=== PATIENT | male | born 1965 | race Native Hawaiian/Other Pacific Islander ===

== ENCOUNTER 2017-07-26 09:49 | Inpatient (IN) | payer SELFPAY ==
[2017-07-26] MEDS ORDERED: BABY ASPIRIN PO ONE (10:02)
[2017-07-26] MEDS ORDERED: NACL 0.9% 1000 ML 1,000 ML ONE ×2 (10:09→13:08)
[2017-07-26] MEDS ORDERED: PLAVIX ONE (10:11)
--- NOTE | 2017-07-26 10:11 | Emergency Department Report ---
HPI - General Time Seen by Provider: 07/26/17 10:02 - HPI HPI: 51-year-old male presents to the emergency department, through triage, with midsternal to left-sided chest pain that has been going on since last night. He has a history of tobacco abuse and hypertension. No previous history of coronary artery disease, OH or any coronary stents. He took some Aleve for his pain without any relief. He does not have a primary care physician or valve pipe irrigator. ED Review of Systems ROS: Stated complaint: HEAD AND CHEST PAIN Other details as noted in HPI Comment: All other systems reviewed and negative Constitutional: denies: chills, fever Eyes: denies: eye pain, eye discharge, vision change ENT: denies: ear pain, throat pain Respiratory: denies: cough, shortness of breath, wheezing Cardiovascular: chest pain. denies: palpitations Gastrointestinal: denies: abdominal pain, nausea, diarrhea Genitourinary: denies: urgency, dysuria Musculoskeletal: denies: back pain, joint swelling, arthralgia Skin: denies: rash, lesions Neurological: denies: headache, weakness, paresthesias Physical Exam - Physical Exam Physical Exam: GENERAL: The patient is well-developed well-nourished. Patient appears very uncomfortable. Holding chest. HENT: Normocephalic. Atraumatic. Patient has moist mucous membranes. EYES: Extraocular motions are intact. Pupils equal reactive to light bilaterally. NECK: Supple. Trachea is midline. CHEST/LUNGS: Clear to auscultation. There is no respiratory distress noted. HEART/CARDIOVASCULAR: Regular. There is no tachycardia. There is no gallop rub or murmur. ABDOMEN: Abdomen is soft, nontender. Patient has normal bowel sounds. There is no abdominal distention. SKIN: There is some mild diaphoresis. Skin is warm. NEURO: The patient is awake, alert, and oriented. The patient is cooperative. The patient has no focal neurologic deficits. The patient has normal speech. MUSCULOSKELETAL: There is no tenderness or deformity. There is no limitation range of motion. There is no evidence of acute injury. ED Course - Consultations Consultation #1: I spoke to the venue attendant, Dr. Diaz, who will take the patient to the specialist employee labor relations. 07/26/17 10:10 ED Medical Decision Making - Lab Data Result diagrams: 07/26/17 09:49 07/26/17 09:49 - EKG Data -: EKG Interpreted by Me EKG shows normal: sinus rhythm, axis, intervals, QRS complexes, ST-T waves (ST elevations to the anterior and less extensively to the lateral leads) Rate: normal - EKG Data Interpretation: acute OH - Radiology Data Radiology results: image reviewed interpreted by me: Chest x-ray does not show any acute process. There are no pleural effusions, obvious pneumonia and there is no pneumothorax. - Medical Decision Making 51-year-old male presents to triage with chest pain since the previous night. EKG shows diffuse anterior and some lateral ST elevations concerning for ST elevation OH. Code STEMI call. The venue attendant was notified and agreed to take him to the specialist employee labor relations. He was given Plavix and heparin bolus. Patient was taken to the [facility] and admitted from there. Found to have LAD occlusion, received balloon and stent. - Differential Diagnosis STEMI, NSTEMI, Pneumonia, Dissection Critical Care Time: Yes Critical care time in (mins) excluding proc time.: 15 Critical care attestation.: If time is entered above; I have spent that time in minutes in the direct care of this critically ill patient, excluding procedure time. Critical care time was spent on this patient and during his initial valuation, multiple re- evaluations, discussion with the venue attendant, ordering interpretation of labs, evaluation of EKG. ED Disposition Clinical Impression: STEMI (ST elevation myocardial infarction) Qualifiers: Involved coronary artery: LAD coronary artery Qualified Code(s): I21.02 - ST elevation (STEMI) myocardial infarction involving left anterior descending coronary artery HLD (hyperlipidemia) Qualifiers: Hyperlipidemia type: unspecified Qualified Code(s): E78.5 - Hyperlipidemia, unspecified CAD (coronary artery disease) Qualifiers: Coronary Disease-Associated Artery/Lesion type: unspecified vessel or lesion type [place] vs. transplanted heart: [place] heart Associated angina: angina presence unspecified Qualified Code(s): I25.10 - Atherosclerotic heart disease of [place] coronary artery without angina pectoris Disposition: OP ADMIT IP TO THIS HOSP Is pt being admited?: Yes Condition: Serious Time of Disposition: 15:35
[2017-07-26] MEDS ORDERED: HEPARIN 10,000 UNITS/10 ML ONE ×3 (10:12→10:38)
[2017-07-26] MEDS ORDERED: HEPARIN IV ONE (10:12)
[2017-07-26] MEDS ORDERED: PLAVIX PO ONE (10:12)
[2017-07-26] MEDS ORDERED: ZOFRAN ONE (10:15)
[2017-07-26] MEDS ORDERED: MORPHINE ONE ×2 (10:15→12:39)
[2017-07-26] MEDS ORDERED: ZOFRAN IV ONE (10:15)
[2017-07-26] MEDS ORDERED: MORPHINE IV ONE ×2 (10:15→12:39)
[2017-07-26 10:17] LABS: Basophils % (Auto) 0.6 % (0.0-1.8); Hematocrit 49.6 % (35.5-45.6); Hemoglobin 17.3 gm/dl (11.8-15.2); Mean Corpuscular HGB Conc 35 % (32-34); Mean Corpuscular Hemoglobin 35 pg (28-32); Mean Corpuscular Volume 101 fl (84-94); Platelet Count 401 K/mm3 (140-440); Red Blood Count 4.92 M/mm3 (3.65-5.03); Red Cell Distribution Width 13.2 % (13.2-15.2)
[2017-07-26] MEDS ORDERED: HEPARIN/NS 5000 UNIT/500ML(CATH LAB) 1,500 ML IR ONE (10:20)
[2017-07-26] MEDS ORDERED: XYLOCAINE 2% INFILTRATI ONE (10:20)
[2017-07-26] MEDS ORDERED: NITROGLYCERIN ONE (10:20)
[2017-07-26] MEDS ORDERED: SUBLIMAZE ONE (10:27)
[2017-07-26 10:31] LABS: Partial Thromboplastin Time 28.3 Sec. (24.2-36.6)
[2017-07-26 10:35] LABS: Albumin 4.5 g/dL (3.9-5); Alkaline Phosphatase 80 units/L (35-129); Blood Urea Nitrogen 18 mg/dL (9-20); Carbon Dioxide 31 mmol/L (22-30); Chloride 92.1 mmol/L (98-107); Glucose 156 mg/dL (75-100); Sodium 139 mmol/L (137-145); Total Protein 8.8 g/dL (6.3-8.2)
[2017-07-26 10:39] LABS: Alanine Aminotransferase 84 units/L (7-56); Anion Gap 20 mmol/L
[2017-07-26 10:40] LABS: Potassium 4.4 mmol/L (3.6-5.0)
[2017-07-26 10:53] LABS: Cholesterol 262 mg/dL (50-199); HDL Cholesterol 90 mg/dL (40-59); LDL Cholesterol,Direct 148 mg/dL (50-130); Triglycerides 123 mg/dL (2-149)
[2017-07-26] MEDS ORDERED: NACL 0.9% 1000 ML 1,000 ML IV ONE (11:00)
[2017-07-26] MEDS ORDERED: HEPARIN 10,000 UNITS/10 ML IV ONE (11:00)
[2017-07-26] MEDS ORDERED: CALAN ONE (11:05)
[2017-07-26] MEDS ORDERED: AGGRASTAT DRIP (12.5 MG/250 ML) 12,500 MCG/250 ML BAG IV ONE (11:11)
[2017-07-26] MEDS ORDERED: TRIDIL DRIP 50MG/250ML 50 MG/250 ML BOTTLE IV ONE (11:15)
--- NOTE | 2017-07-26 11:24 | Consultation ---
History of Present Illness Consult date: 07/26/17 Consult reason: chest pain History of present illness: 51y M history of tobacco abuse, presents with chest pain and ECG consistent with acute anterior STEMI. Emergency cardiac cath with successful primary PCI of occluded mid LAD. A 2.75mm BM stent deployed, and CHRISTIAN 3 flow restored. A secondary 60% stenosis of the proximal circumflex will be treated medically. Transfer to CCU on meds. Past History Past Medical History: hypertension Medications and Allergies Allergies Allergy/AdvReac Type Severity Reaction Status Date / Time No Known Allergies Allergy Unverified 07/26/17 10:11 Active Meds: Active Medications Sodium Chloride (Nacl 0.9% 1000 Ml) 1,000 mls @ 999 mls/hr IV BOLUS ONE Stop: 07/26/17 12:00 Last Admin: 07/26/17 10:16 Dose: 999 mls/hr Review of Systems Cardiovascular: chest pain, shortness of breath, no orthopnea, no palpitations, no rapid/irregular heart beat, no edema, no syncope, no lightheadedness Physical Examination Vital Signs Resp Pulse Ox 16 100 07/26/17 10:00 07/26/17 10:00 General appearance: no acute distress HEENT: Positive: PERRL Neck: Positive: neck supple Cardiac: Positive: Reg Rate and Rhythm Lungs: Positive: Decreased Breath Sounds Neuro: Positive: Grossly Intact Abdomen: Positive: Soft Male genitourinary: Positive: deferred Skin: Positive: Clear Extremities: Absent: edema Results 07/26/17 09:49 07/26/17 09:49 Cardiac Enzymes 07/26/17 Range/Units 09:49 AST 438 H (5-40) units/L Coagulation 07/26/17 Range/Units 09:49 PT 13.1 (12.2-14.9) Sec. INR 1.00 (0.87-1.13) APTT 28.3 (24.2-36.6) Sec. Lipids 07/26/17 Range/Units 09:49 Triglycerides 123 (2-149) mg/dL Cholesterol 262 H (50-199) mg/dL HDL Cholesterol 90 H (40-59) mg/dL Cholesterol/HDL Ratio 2.91 % CBC 07/26/17 Range/Units 09:49 WBC 12.0 H (4.5-11.0) K/mm3 RBC 4.92 (3.65-5.03) M/mm3 Hgb 17.3 H (11.8-15.2) gm/dl Hct 49.6 H (35.5-45.6) % Plt Count 401 (140-440) K/mm3 Lymph # 1.0 L (1.2-5.4) K/mm3 [place] # 0.9 H (0.0-0.8) K/mm3 Eos # 0.0 (0.0-0.4) K/mm3 Baso # 0.1 (0.0-0.1) K/mm3 Comprehensive Metabolic Panel 07/26/17 Range/Units 09:49 Sodium 139 (137-145) mmol/L Potassium 4.4 (3.6-5.0) mmol/L Chloride 92.1 L (98-107) mmol/L Carbon Dioxide 31 H (22-30) mmol/L BUN 18 (9-20) mg/dL Creatinine 1.0 (0.8-1.5) mg/dL Glucose 156 H (75-100) mg/dL Calcium 10.0 (8.4-10.2) mg/dL AST 438 H (5-40) units/L ALT 84 H (7-56) units/L Alkaline Phosphatase 80 (35-129) units/L Total Protein 8.8 H (6.3-8.2) g/dL Albumin 4.5 (3.9-5) g/dL EKG interpretations - Telemetry EKG Rhythm: Sinus Rhythm (with anterior STEMI) Assessment and Plan - Patient Problems (1) STEMI (ST elevation myocardial infarction) Current Visit: Yes Status: Acute Qualifiers: Involved coronary artery: I Plan to address problem: Emergency cardiac cath with successful primary PCI of occluded mid LAD. A 2.75mm BM stent deployed, and CHRISTIAN 3 flow restored. A secondary 60% stenosis of the proximal circumflex will be treated medically. Transfer to CCU on meds.
[2017-07-26] MEDS ORDERED: AGGRASTAT DRIP (12.5 MG/250 ML) 12,500 MCG/250 ML BAG IV SCH ×2 (12:00→15:00)
[2017-07-26] MEDS ORDERED: ZESTRIL PO SCH ×2 (12:00)
[2017-07-26] MEDS ORDERED: NACL 0.9% 1000 ML 1,000 ML IV SCH (12:00)
[2017-07-26] MEDS ORDERED: TRIDIL DRIP 50MG/250ML 50 MG/250 ML BOTTLE ONE (12:08)
--- NOTE | 2017-07-26 12:21 | History and Physical Report ---
History of Present Illness Chief complaint: My chest is hurting History of present illness: 51 YO Male with HTN, Nicotine Dependence presents to ED for evaluation. Pt states that he has experienced pain in his chest for the past 12 hours, with worsening symptoms over the past 4 hours. Pt states that pain is 6/10, substernal, nonradiating, nor worsened with exertion or relieved with rest. PT took NSAID's for pain without relief. Pt seen and evaluated in ED and found to have STEMI. Cardiology team consulted, and patient taken urgently to pathology laboratory aides teacher for intervention and subsequently admitted to ICU. No reports of fever, chills, NVD, prolonged travel/immobility, individual/family history of DVT/PE, productive cough, or recent ill contacts. Past History Past Medical History: hypertension Past Surgical History: No surgical history, Other (reviewed) Social history: single. denies: smoking, alcohol abuse, prescription drug abuse Family history: hypertension Medications and Allergies Allergies Allergy/AdvReac Type Severity Reaction Status Date / Time No Known Allergies Allergy Unverified 07/26/17 10:11 Active Meds: Active Medications Aspirin (Ecotrin) 325 mg PO QDAY CASEY Clopidogrel Bisulfate (Plavix) 75 mg PO QDAY CASEY Tirofiban/Sodium Chloride (Aggrastat Drip (12.5 Mg/250 Ml)) 12,500 mcg in 250 mls @ 12.6 mls/hr IV DIRECT CASEY; Per Protocol PRN Reason: Protocol Stop: 07/27/17 05:59 Nitroglycerin/Dextrose (Tridil Drip 50mg/250ml) 50 mg in 250 mls @ 3 mls/hr IV TITR ONE; 10 MCG/MIN PRN Reason: Protocol Stop: 07/29/17 22:34 Sodium Chloride (Nacl 0.9% 1000 Ml) 1,000 mls @ 100 mls/hr IV DIRECT CASEY Stop: 07/26/17 23:59 Lisinopril (Zestril) 10 mg PO QDAY CASEY Last Admin: 07/26/17 12:01 Dose: 10 mg Metoprolol Tartrate (Lopressor) 50 mg PO BID CASEY Simvastatin (Zocor) 40 mg PO QHS CASEY Review of Systems Constitutional: no weight loss, no weight gain, no fever, no chills, no sweats Ears, nose, mouth and throat: no ear pain, no ear discharge, no tinnitis, no decreased hearing, no nose pain, no nasal congestion Cardiovascular: chest pain, no rapid/irregular heart beat, no edema, no syncope , no lightheadedness, no shortness of breath, no dyspnea on exertion, no paroxysmal nocturnal dyspnea Respiratory: no cough, no cough with sputum, no excessive sputum, no hemoptysis Gastrointestinal: no nausea, no vomiting, no diarrhea, no constipation Genitourinary Male: no dysuria, no hematuria, no flank pain, no discharge Rectal: no pain, no incontinence, no bleeding Musculoskeletal: no neck stiffness, no neck pain, no shooting arm pain, no arm numbness/tingling, no low back pain Integumentary: no rash, no pruritis, no redness, no sores Neurological: no transient paralysis, no paralysis, no weakness, no parathesias , no numbness, no tingling, no seizures Psychiatric: no memory loss, no change in sleep habits, no sleep disturbances, no insomnia, no hypersomnia, no change in appetite Endocrine: no heat intolerance, no polyphagia, no excessive thirst, no polydipsia, no polyuria, no nocturia Hematologic/Lymphatic: no easy bruising, no easy bleeding Allergic/Immunologic: no urticaria, no allergic rhinitis, no wheezing Exam - Constitutional Vitals: Temp Pulse Resp BP Pulse Ox 98.3 F 70 18 121/84 96 07/26/17 11:30 07/26/17 12:01 07/26/17 11:30 07/26/17 12:01 07/26/17 11:30 General appearance: Present: mild distress - EENT Eyes: Present: PERRL ENT: hearing intact, clear oral mucosa - Neck Neck: Present: supple, normal ROM - Respiratory Respiratory effort: normal Respiratory: bilateral: CTA - Cardiovascular Heart Sounds: Present: S1 & S2. Absent: rub, click - Extremities Extremities: pulses symmetrical, No edema Peripheral Pulses: within normal limits - Abdominal General gastrointestinal: Present: soft, non-tender, non-distended, normal bowel sounds Male genitourinary: Present: normal - Integumentary Integumentary: Present: clear, dry, clammy, decreased turgor - Musculoskeletal Musculoskeletal: generalized weakness - Psychiatric Psychiatric: appropriate mood/affect, intact judgment & insight, agitated - Neurologic Neurologic: CNII-XII intact, moves all extremities Results - Labs CBC & Chem 7: 07/26/17 09:49 07/26/17 09:49 Labs: Abnormal lab results 07/26/17 07/26/17 Range/Units 09:49 09:49 WBC 12.0 H (4.5-11.0) K/mm3 Hgb 17.3 H (11.8-15.2) gm/dl Hct 49.6 H (35.5-45.6) % MCV 101 H (84-94) fl MCH 35 H (28-32) pg MCHC 35 H (32-34) % Lymph % (Auto) 8.0 L (13.4-35.0) % Lymph # 1.0 L (1.2-5.4) K/mm3 [place] # 0.9 H (0.0-0.8) K/mm3 Seg Neutrophils % 84.2 H (40.0-70.0) % Seg Neutrophils # 10.1 H (1.8-7.7) K/mm3 Chloride 92.1 L (98-107) mmol/L Carbon Dioxide 31 H (22-30) mmol/L Glucose 156 H (75-100) mg/dL AST 438 H (5-40) units/L ALT 84 H (7-56) units/L Troponin T 5.080 H* (0.00-0.029) ng/mL Total Protein 8.8 H (6.3-8.2) g/dL Cholesterol 262 H (50-199) mg/dL LDL Cholesterol Direct 148 H (50-130) mg/dL HDL Cholesterol 90 H (40-59) mg/dL Assessment and Plan - Patient Problems (1) STEMI (ST elevation myocardial infarction) Current Visit: Yes Status: Acute Qualifiers: Involved coronary artery: I Plan to address problem: Cardiology consulted, Pt taken to pathology laboratory aides teacher, supportive care, antiplatelet therapy, risk factor reduction The high probability of a clinically significant, sudden or life threatening deterioration of the [cardiac, pulmonary, renal] system(s) required my full and direct attention, intervention and personal management. The aggregate critical care time was [65] minutes. This time is in addition to time spent performing reported procedures but includes the following: [x] Data Review and interpretation [x] Patient assessment and monitoring of vital signs [x] Documentation [x] Medication orders and management (2) HLD (hyperlipidemia) Current Visit: Yes Status: Acute Qualifiers: Hyperlipidemia type: H Plan to address problem: statin theapy, risk factor reduction (3) Nicotine dependence Current Visit: Yes Status: Acute Qualifiers: Nicotine product type: N Substance use status: S Plan to address problem: supportive care, pt refused to pick quit date (4) CAD (coronary artery disease) Current Visit: Yes Status: Acute Qualifiers: Coronary Disease-Associated Artery/Lesion type: C [place] vs. transplanted heart: N Associated angina: A Plan to address problem: continue medical management, supportive care, (5) DVT prophylaxis Current Visit: Yes Status: Acute
[2017-07-26] MEDS ORDERED: PROVENTIL IH PRN (12:22)
[2017-07-26] MEDS ORDERED: DULCOLAX PR PRN (12:22)
[2017-07-26] MEDS ORDERED: MILK OF MAGNESIA PO PRN (12:22)
[2017-07-26] MEDS ORDERED: ALUM-MAG HYDROX-SIMETH 200-200-20MG/5ML PO PRN (12:22)
--- NOTE | 2017-07-26 13:59 | XRay Report ---
AP CHEST: HISTORY: chest pain AP view of the chest demonstrates a normal mediastinal and cardiac contour with clear lungs and normal bony and soft tissue structures. IMPRESSION: Unremarkable AP chest.
[2017-07-26 20:16] LABS: Hematocrit 43.6 % (35.5-45.6); Hemoglobin 14.9 gm/dl (11.8-15.2)
[2017-07-26] MEDS ORDERED: ZOCOR PO SCH (22:00)
[2017-07-26] MEDS ORDERED: LOPRESSOR PO SCH (22:00)
--- NOTE | 2017-07-27 01:42 | Cardiac Catherization Report ---
REASON FOR PROCEDURE: The patient is a 51-year-old man with chronic tobacco abuse, presents to the Emergency Room with chest pain. ECG demonstrated an acute anterior wall ST elevation myocardial infarction. Emergency cardiac catheterization protocol was activated. PROCEDURE: The patient was prepped and draped in a sterile fashion under emergency protocol. The right femoral artery was entered using the Seldinger technique followed by placement of a 6-[place]ugu sheath. A #4 right Pamela catheter was used for right coronary angiography. Following that, we exchanged for a #3.5 XB guiding catheter for left coronary angiography. CORONARY ANGIOGRAPHY: The left main coronary artery was free of significant disease. The left anterior descending artery was completely occluded in its proximal to mid segment, with CHRISTIAN 0 forward flow. This was the infarct-related lesion. The circumflex artery was a medium-sized system that contained a 60% stenosis of its proximal AV groove segment. The right coronary artery was dominant. This vessel contained mild luminal irregularities in its mid segment. CORONARY ANGIOPLASTY: We commenced with ad hoc, primary angioplasty of the LAD occlusion. A 0.014 inch Propagator Laborer 50 guidewire was introduced in the LAD. Due to the long segment of occlusion, there was a challenge in cannulating the LAD, requiring the use of an [id number] balloon and a Cross-It wire. I eventually was successful in obtaining access through the long segment of complete occlusion of the mid LAD. Predilatation balloon angioplasty was then performed using a 3.0 mm balloon catheter. Following balloon angioplasty, CHRISTIAN 3 flow was reestablished. We then deployed a long, 2.75 x 28 mm bare-metal stent, covering the entire lesioanal segment of the mid LAD. The stent was overinflated to a final diameter of 3.2 mm. Following stenting, there was an excellent angiographic result, 0 residual stenosis at the treated site and CHRISTIAN 3 flow was restored in the LAD system. The stenosis of borderline severity of the proximal circumflex is recommended for aggressive risk factor modification and medical therapy. The interventional procedure was tolerated by the patient and there were no complications. The catheters and the wires were removed, hemostasis at the site achieved using manual compression. The patient was returned to the postprocedure unit in stable condition. CONCLUSION: 1. Acute anterior wall ST elevation myocardial infarction. 2. 100% occlusion of the LAD in its mid segment. 3. Successful primary angioplasty and stenting of the LAD, with deployment of a 2.75 mm bare-metal stent, expanded to a final 3.2 mm diameter. 4. The stenosis of the proximal circumflex of borderline severity to be treated medically. 5. Echocardiography for left ventricular function and valvular function assessment. JOB# [id number] VISHNU/NTS
[2017-07-27 03:23] LABS: Basophils % (Auto) 0.3 % (0.0-1.8); Eosinophils % (Auto) 0.1 % (0.0-4.3); Hematocrit 39.5 % (35.5-45.6); Hemoglobin 13.8 gm/dl (11.8-15.2); Mean Corpuscular HGB Conc 35 % (32-34); Mean Corpuscular Hemoglobin 35 pg (28-32); Mean Corpuscular Volume 100 fl (84-94); Platelet Count 294 K/mm3 (140-440); Red Blood Count 3.94 M/mm3 (3.65-5.03); Red Cell Distribution Width 12.9 % (13.2-15.2); White Blood Count 12.1 K/mm3 (4.5-11.0)
[2017-07-27 03:40] LABS: Creatine Kinase MB 41.4 ng/mL (0.0-4.0)
[2017-07-27 03:42] LABS: Anion Gap 18 mmol/L; BUN/Creatinine Ratio 21.11; Blood Urea Nitrogen 19 mg/dL (9-20); Calcium 8.2 mg/dL (8.4-10.2); Carbon Dioxide 25 mmol/L (22-30); Chloride 98.7 mmol/L (98-107); Creatine Kinase 1018 units/L (55-170); Glucose 101 mg/dL (75-100); Potassium 3.8 mmol/L (3.6-5.0); Sodium 138 mmol/L (137-145)
[2017-07-27] MEDS ORDERED: MORPHINE IV PRN (04:00)
--- NOTE | 2017-07-27 07:41 | XRay Report ---
Single view chest: Compared to 07/26/17. History: Post PCI. Findings: Normal cardiomediastinal silhouette the trachea is midline. No consolidation, pneumothorax or pleural effusion. Impression: No acute cardiopulmonary findings.
[2017-07-27] MEDS: PLAVIX PO SCH (10:43)
[2017-07-27] MEDS: ECOTRIN PO SCH (10:43)
--- NOTE | 2017-07-27 11:26 | Progress Note ---
Assessment and Plan Acute anterior STEMI. s/p PCI of occluded mid LAD using a BM stent A secondary 60% stenosis of the proximal circumflex will be treated medically. LVEF 20-25% on echocardiogram Continue to monitor in CCU for an additional 24hrs. Stop IV nitro drip s/t low normal blood pressures. Medical therapy for dilated ischemic cardiomyopathy and coronary artery disease. Subjective Date of service: 07/27/17 Interval history: Patient speaks little Japanese. He reports his chest pain is less. He has no shortness of breath. Cath site intact. Objective Vital Signs Temp Pulse Resp BP Pulse Ox 07/27/17 08:00 98.6 F 07/27/17 06:00 77 23 106/74 98 07/27/17 05:50 74 13 101/71 99 07/27/17 05:40 71 14 100/69 99 07/27/17 05:30 73 17 100/69 07/27/17 05:20 73 17 98/69 98 07/27/17 05:10 82 16 93/66 100 07/27/17 05:00 74 22 104/77 07/27/17 04:50 71 19 104/68 99 07/27/17 04:40 68 15 93/66 99 07/27/17 04:30 73 15 93/66 07/27/17 04:20 70 16 91/66 99 07/27/17 04:10 73 18 93/66 98 07/27/17 04:00 75 16 93/66 98 07/27/17 03:50 77 18 96/62 98 07/27/17 03:40 76 22 100/70 98 07/27/17 03:30 73 19 93/64 07/27/17 03:21 97.6 F 07/27/17 03:20 75 18 92/67 99 07/27/17 03:10 79 15 91/65 98 07/27/17 03:00 74 18 100/70 07/27/17 02:50 79 19 107/72 98 07/27/17 02:40 74 21 91/65 100 07/27/17 02:30 79 18 91/65 07/27/17 02:20 76 22 100/66 100 07/27/17 02:10 79 15 98/68 98 07/27/17 02:00 75 17 98/68 99 07/27/17 01:50 76 15 105/68 99 07/27/17 01:40 88 20 103/67 100 07/27/17 01:30 77 16 103/67 07/27/17 01:20 75 17 94/70 100 07/27/17 01:10 73 16 96/70 99 07/27/17 01:00 72 16 96/70 07/27/17 00:50 73 16 92/68 99 07/27/17 00:40 79 19 94/68 98 07/27/17 00:30 79 16 94/68 97 07/27/17 00:20 79 18 97/72 96 07/27/17 00:10 78 19 95/71 96 07/27/17 00:00 77 18 95/71 98 07/26/17 23:50 75 17 104/65 94 07/26/17 23:42 78 100/67 07/26/17 23:40 80 15 100/67 98 07/26/17 23:38 98.5 F 07/26/17 23:30 79 17 100/67 07/26/17 23:20 78 16 93/66 97 07/26/17 23:10 79 20 91/66 97 07/26/17 23:00 79 19 91/66 07/26/17 22:50 79 19 92/66 98 07/26/17 22:40 79 19 94/64 98 07/26/17 22:30 79 20 94/64 07/26/17 22:20 80 21 92/65 98 07/26/17 22:10 84 16 89/65 97 07/26/17 22:00 82 19 89/65 07/26/17 21:50 80 15 103/67 97 07/26/17 21:40 83 20 97/67 94 07/26/17 21:30 81 17 85/58 95 07/26/17 21:20 83 17 90/65 95 07/26/17 21:10 85 17 106/70 95 07/26/17 21:00 86 15 106/70 96 07/26/17 20:50 80 17 103/69 95 07/26/17 20:40 78 17 106/69 96 07/26/17 20:30 81 17 106/69 95 07/26/17 20:20 81 17 104/72 96 07/26/17 20:11 97 07/26/17 20:10 80 16 98/66 96 07/26/17 20:00 76 13 98/66 98 07/26/17 19:54 98.6 F 07/26/17 19:50 82 25 H 117/77 96 07/26/17 19:40 79 19 117/77 97 07/26/17 19:30 85 17 117/77 97 07/26/17 19:20 79 18 119/82 99 07/26/17 19:10 80 17 119/87 99 07/26/17 19:00 80 17 119/87 99 07/26/17 18:50 77 18 121/86 99 07/26/17 18:40 75 14 114/80 98 07/26/17 18:30 78 23 114/80 98 07/26/17 18:20 79 22 128/89 99 07/26/17 18:10 84 19 131/93 98 07/26/17 18:00 83 19 128/89 99 07/26/17 17:59 84 21 98 07/26/17 17:40 89 24 126/88 99 07/26/17 17:30 79 20 128/92 99 07/26/17 17:20 82 24 128/92 99 07/26/17 17:10 79 26 H 131/93 99 07/26/17 17:05 97.5 F L 131/93 96 07/26/17 17:00 98 07/26/17 15:30 87 19 128/86 96 07/26/17 15:00 80 20 126/90 97 07/26/17 14:42 81 18 130/88 99 07/26/17 14:32 82 16 126/83 97 07/26/17 14:27 77 18 126/88 96 07/26/17 14:22 82 16 123/89 97 07/26/17 14:17 77 18 128/88 96 07/26/17 14:00 78 20 128/89 98 07/26/17 13:30 79 14 134/94 98 07/26/17 13:15 80 20 137/95 98 07/26/17 13:00 79 18 109/72 97 07/26/17 12:56 79 16 129/88 97 07/26/17 12:45 79 25 H 118/82 97 07/26/17 12:30 79 26 H 127/84 96 - Physical Examination General: No Apparent Distress HEENT: Positive: PERRL Neck: Positive: neck supple Cardiac: Positive: Reg Rate and Rhythm Lungs: Positive: Decreased Breath Sounds Neuro: Positive: Grossly Intact Incision: Cardiac Cath Site Extremities: Absent: edema - Labs and Meds Cardiac Enzymes 07/27/17 Range/Units 02:48 CK-MB (CK-2) 41.4 H (0.0-4.0) ng/mL CBC 07/26/17 07/27/17 Range/Units 19:43 02:48 WBC 12.1 H (4.5-11.0) K/mm3 RBC 3.94 (3.65-5.03) M/mm3 Hgb 14.9 13.8 (11.8-15.2) gm/dl Hct 43.6 D 39.5 (35.5-45.6) % Plt Count 324 294 (140-440) K/mm3 Lymph # 1.2 (1.2-5.4) K/mm3 [place] # 0.9 H (0.0-0.8) K/mm3 Eos # 0.0 (0.0-0.4) K/mm3 Baso # 0.0 (0.0-0.1) K/mm3 Comprehensive Metabolic Panel 07/27/17 Range/Units 02:48 Sodium 138 (137-145) mmol/L Potassium 3.8 (3.6-5.0) mmol/L Chloride 98.7 (98-107) mmol/L Carbon Dioxide 25 (22-30) mmol/L BUN 19 (9-20) mg/dL Creatinine 0.9 (0.8-1.5) mg/dL Glucose 101 H (75-100) mg/dL Calcium 8.2 L D (8.4-10.2) mg/dL
--- NOTE | 2017-07-27 11:51 | Consultation ---
History of Present Illness - Reason for Consult Consult date: 07/27/17 Post Cath ICU monitoring Requesting physician: ZACH HARDY - History of Present Illness 51 y/o male, admitted as a code STEMI on yesterday. 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 Stable this am. Had some chest pain this am. Rpt EKG was stable. Relieved with morphine. Currently on nitro but only 10mcgs. Remainder is negative. Cardiology is evaluating patient now. Past History Past Medical History: hypertension Past Surgical History: No surgical history, Other (reviewed) Social history: single. denies: smoking, alcohol abuse, prescription drug abuse Family history: hypertension Medications and Allergies Allergies Allergy/AdvReac Type Severity Reaction Status Date / Time No Known Allergies Allergy Unverified 07/26/17 10:11 Active Meds: Active Medications Al Hydrox/Mg Hydrox/Simethicone (Alum-Mag Hydrox-Simeth [id number]/5ml) 30 ml PO Q4H PRN PRN Reason: Indigestion Albuterol (Proventil) 2.5 mg IH Q3HRT PRN PRN Reason: Shortness Of Breath Aspirin (Ecotrin) 325 mg PO QDAY [facility] Last Admin: 07/27/17 10:43 Dose: 325 mg Atorvastatin Calcium (Lipitor) 40 mg PO QHS [facility]Y Bisacodyl (Dulcolax) 10 mg SD QDAY PRN PRN Reason: constipation unrelieved by MOM Clopidogrel Bisulfate (Plavix) 75 mg PO QDAY [facility] Last Admin: 07/27/17 10:43 Dose: 75 mg Lisinopril (Zestril) 5 mg PO QDAY [facility] Magnesium Hydroxide (Milk Of Magnesia) 30 ml PO Q4H PRN PRN Reason: Constipation Metoprolol Tartrate (Lopressor) 25 mg PO BID [facility] Morphine Sulfate (Morphine) 2 mg IV Q4H PRN PRN Reason: Pain, Moderate (4-6) Last Admin: 07/27/17 03:51 Dose: 2 mg Review of Systems All systems: negative Exam - Constitutional Vitals: Temp Pulse Resp BP Pulse Ox 98.6 F 77 23 106/74 98 07/27/17 08:00 07/27/17 06:00 07/27/17 06:00 07/27/17 06:00 07/27/17 06:00 General appearance: Present: no acute distress - EENT Eyes: Present: PERRL ENT: hearing intact - Neck Neck: Present: supple - Respiratory Respiratory effort: normal Respiratory: bilateral: CTA Results - Labs CBC & Chem 7: 07/27/17 02:48 07/27/17 02:48 Labs: Abnormal lab results 07/27/17 07/27/17 Range/Units 02:48 02:48 WBC 12.1 H (4.5-11.0) K/mm3 MCV 100 H (84-94) fl MCH 35 H (28-32) pg MCHC 35 H (32-34) % RDW 12.9 L (13.2-15.2) % Lymph % (Auto) 9.8 L (13.4-35.0) % [place] % (Auto) 7.8 H (0.0-7.3) % [place] # 0.9 H (0.0-0.8) K/mm3 Seg Neutrophils % 82.0 H (40.0-70.0) % Seg Neutrophils # 9.9 H (1.8-7.7) K/mm3 Glucose 101 H (75-100) mg/dL Calcium 8.2 L D (8.4-10.2) mg/dL Total Creatine Kinase 1018 H (55-170) units/L CK-MB (CK-2) 41.4 H (0.0-4.0) ng/mL Troponin T 7.250 H* D (0.00-0.029) ng/mL - Imaging and Cardiology Chest x-ray: image reviewed (clear, no evidence of acute lung disease) Assessment and Plan 51 y/o male with STEMI 1. Continue ASA, statin, Plavix and BB with DEEPIKA 2. Spoke with cards, will turn off nitro drip and await to see if chest pain recurs. Will not start long acting pO nitrates at this time 3. Lifestyle changes 4. Pending toleration off nitro, may be stable for transfer later out of ICU
[2017-07-27] MEDS: ZESTRIL PO SCH (12:00)
[2017-07-27] MEDS: LOPRESSOR PO SCH ×2 (14:07→22:04)
--- NOTE | 2017-07-27 19:14 | Progress Note ---
Assessment and Plan Assessment and plan: Patient is a 51-year-old man with history of hypertension tobacco dependence who presents with chest pain, admitted as a code STEMI on yesterday. 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 Follow-up on current diagnosis/cp. Overnight uneventful. Patient denies any chest pain, shortness breath, nausea/vomiting or severe headaches. Imaging, nursing note, chart, labs and old chart reviewed. Discussed with patient. Hospitalist Physical - Physical exam Narrative exam: GEN: WDWN, NAD, AWAKE, ALERT, ORIENTATED 3 HEENT: NCAT, EOMI, PERRL, OP Clear NECK: supple, no adenopathy, no thyromegaly, no JVD CVS/HEART: RRR, NORMAL S1S2, NO JVD, pulses present bilaterally CHEST/LUNGS: CTA B, Symmetrical chest expansion, good air entry bilaterally GI/Abdomen: soft, NTND, good bowel sounds, no guarding or rebound /Bladder: no suprapubic tenderness, no CVA or paraspinal tenderness EXT/Skin: no c/c/e, no significant edema or obvious rash MSK: FROM x 4 Neuro: CN 2-12 grossly intact, no new focal deficits Psych: calm - Constitutional Vitals: Temp Pulse Resp BP Pulse Ox 98.2 F 77 21 106/75 97 07/27/17 16:00 07/27/17 14:07 07/27/17 14:00 07/27/17 14:07 07/27/17 13:50 General appearance: Present: no acute distress Results - Labs CBC & Chem 7: 07/27/17 02:48 07/27/17 02:48 Labs: Laboratory Last Values WBC 12.1 K/mm3 (4.5-11.0) H 07/27/17 02:48 RBC 3.94 M/mm3 (3.65-5.03) 07/27/17 02:48 Hgb 13.8 gm/dl (11.8-15.2) 07/27/17 02:48 Hct 39.5 % (35.5-45.6) 07/27/17 02:48 MCV 100 fl (84-94) H 07/27/17 02:48 MCH 35 pg (28-32) H 07/27/17 02:48 MCHC 35 % (32-34) H 07/27/17 02:48 RDW 12.9 % (13.2-15.2) L 07/27/17 02:48 Plt Count 294 K/mm3 (140-440) 07/27/17 02:48 Lymph % (Auto) 9.8 % (13.4-35.0) L 07/27/17 02:48 [place] % (Auto) 7.8 % (0.0-7.3) H 07/27/17 02:48 Eos % (Auto) 0.1 % (0.0-4.3) 07/27/17 02:48 Baso % (Auto) 0.3 % (0.0-1.8) 07/27/17 02:48 Lymph # 1.2 K/mm3 (1.2-5.4) 07/27/17 02:48 [place] # 0.9 K/mm3 (0.0-0.8) H 07/27/17 02:48 Eos # 0.0 K/mm3 (0.0-0.4) 07/27/17 02:48 Baso # 0.0 K/mm3 (0.0-0.1) 07/27/17 02:48 Seg Neutrophils % 82.0 % (40.0-70.0) H 07/27/17 02:48 Seg Neutrophils # 9.9 K/mm3 (1.8-7.7) H 07/27/17 02:48 PT 13.1 Sec. (12.2-14.9) 07/26/17 09:49 INR 1.00 (0.87-1.13) 07/26/17 09:49 APTT 28.3 Sec. (24.2-36.6) 07/26/17 09:49 Activated Clotting Time 136 (74-137) 07/26/17 13:33 Sodium 138 mmol/L (137-145) 07/27/17 02:48 Potassium 3.8 mmol/L (3.6-5.0) 07/27/17 02:48 Chloride 98.7 mmol/L (98-107) 07/27/17 02:48 Carbon Dioxide 25 mmol/L (22-30) 07/27/17 02:48 Anion Gap 18 mmol/L 07/27/17 02:48 BUN 19 mg/dL (9-20) 07/27/17 02:48 Creatinine 0.9 mg/dL (0.8-1.5) 07/27/17 02:48 Estimated GFR > 60 ml/min 07/27/17 02:48 BUN/Creatinine Ratio 21.11 % 07/27/17 02:48 Glucose 101 mg/dL (75-100) H 07/27/17 02:48 Calcium 8.2 mg/dL (8.4-10.2) L D 07/27/17 02:48 Magnesium 2.00 mg/dL (1.7-2.3) 07/27/17 02:48 Total Bilirubin 0.80 mg/dL (0.1-1.2) 07/26/17 09:49 AST 438 units/L (5-40) H 07/26/17 09:49 ALT 84 units/L (7-56) H 07/26/17 09:49 Alkaline Phosphatase 80 units/L (35-129) 07/26/17 09:49 Total Creatine Kinase 1018 units/L (55-170) H 07/27/17 02:48 CK-MB (CK-2) 41.4 ng/mL (0.0-4.0) H 07/27/17 02:48 CK-MB (CK-2) Rel Index 4.0 (0-4) 07/27/17 02:48 Troponin T 7.250 ng/mL (0.00-0.029) H* D 07/27/17 02:48 Total Protein 8.8 g/dL (6.3-8.2) H 07/26/17 09:49 Albumin 4.5 g/dL (3.9-5) 07/26/17 09:49 Albumin/Globulin Ratio 1.0 % 07/26/17 09:49 Triglycerides 123 mg/dL (2-149) 07/26/17 09:49 Cholesterol 262 mg/dL (50-199) H 07/26/17 09:49 LDL Cholesterol Direct 148 mg/dL (50-130) H 07/26/17 09:49 HDL Cholesterol 90 mg/dL (40-59) H 07/26/17 09:49 Cholesterol/HDL Ratio 2.91 % 07/26/17 09:49 Blood Type O POSITIVE 07/26/17 09:49 Antibody Screen Negative 07/26/17 09:49
[2017-07-28 05:31] LABS: Hematocrit 37.2 % (35.5-45.6); Hemoglobin 12.9 gm/dl (11.8-15.2); Mean Corpuscular HGB Conc 35 % (32-34); Mean Corpuscular Hemoglobin 35 pg (28-32); Mean Corpuscular Volume 101 fl (84-94); Red Blood Count 3.68 M/mm3 (3.65-5.03); Red Cell Distribution Width 12.6 % (13.2-15.2); White Blood Count 7.5 K/mm3 (4.5-11.0)
[2017-07-28 05:33] LABS: Platelet Count 230 K/mm3 (140-440)
[2017-07-28 06:09] LABS: Anion Gap 17 mmol/L; Blood Urea Nitrogen 16 mg/dL (9-20); Calcium 8.1 mg/dL (8.4-10.2); Carbon Dioxide 26 mmol/L (22-30); Chloride 99.2 mmol/L (98-107); Glucose 86 mg/dL (75-100); Potassium 3.9 mmol/L (3.6-5.0); Sodium 138 mmol/L (137-145)
[2017-07-28] MEDS: PLAVIX PO SCH (10:07)
[2017-07-28] MEDS: LOPRESSOR PO SCH (10:07)
[2017-07-28] MEDS: ECOTRIN PO SCH (10:07)
[2017-07-28] MEDS: ZESTRIL PO SCH (10:08)
--- NOTE | 2017-07-28 10:43 | Progress Note ---
Assessment and Plan Acute anterior STEMI. s/p PCI of occluded mid LAD using a BM stent A secondary 60% stenosis of the proximal circumflex will be treated medically. LVEF 20-25% on echocardiogram Recommendations: Medical therapy for dilated ischemic cardiomyopathy and coronary artery disease. Stable cardiac [place]. F/U with [facility] within 1wk of discharge. Subjective Date of service: 07/28/17 Interval history: Patient is resting in bed comfortably. He denies chest pain. Objective Vital Signs Temp Pulse Pulse Pulse Pulse Pulse Resp 07/28/17 10:08 84 07/28/17 10:07 84 07/28/17 05:33 98.4 F 69 17 07/27/17 23:45 97.5 F L 66 18 07/27/17 23:00 07/27/17 22:50 72 20 07/27/17 22:40 75 20 07/27/17 22:30 74 19 07/27/17 22:20 73 20 07/27/17 22:10 71 19 07/27/17 22:04 75 07/27/17 22:00 84 21 07/27/17 21:59 07/27/17 21:00 74 18 07/27/17 20:00 76 18 07/27/17 19:58 98.8 F 07/27/17 19:20 75 15 07/27/17 19:10 73 15 07/27/17 19:00 75 16 07/27/17 18:50 78 16 07/27/17 18:40 79 14 07/27/17 18:30 75 19 07/27/17 18:20 80 13 07/27/17 18:10 82 10 L 07/27/17 18:00 76 80 80 80 80 22 07/27/17 17:50 77 20 07/27/17 17:40 78 20 07/27/17 17:30 78 20 07/27/17 17:20 76 20 07/27/17 17:10 76 21 07/27/17 17:00 71 19 07/27/17 16:50 73 21 07/27/17 16:40 75 21 07/27/17 16:30 76 17 07/27/17 16:20 72 18 07/27/17 16:10 71 18 07/27/17 16:00 98.2 F 71 77 77 77 77 21 07/27/17 15:50 74 21 07/27/17 15:40 75 21 07/27/17 15:30 72 22 07/27/17 15:20 74 21 07/27/17 15:10 72 22 07/27/17 15:00 67 22 07/27/17 14:50 74 21 07/27/17 14:40 79 20 07/27/17 14:30 82 16 07/27/17 14:20 82 18 07/27/17 14:10 75 17 07/27/17 14:07 77 07/27/17 14:00 82 21 07/27/17 13:50 81 20 07/27/17 13:40 80 13 07/27/17 13:30 83 12 07/27/17 13:20 79 21 07/27/17 13:10 79 20 07/27/17 13:00 78 20 07/27/17 12:50 82 21 07/27/17 12:40 73 27 H 07/27/17 12:30 81 22 07/27/17 12:20 81 19 07/27/17 12:10 78 21 07/27/17 12:00 97.4 F L 70 76 76 76 76 19 07/27/17 11:50 78 21 07/27/17 11:40 78 22 07/27/17 11:30 79 21 07/27/17 11:20 77 21 07/27/17 11:10 77 19 07/27/17 11:00 77 20 07/27/17 10:50 81 19 BP Pulse Ox 07/28/17 10:08 99/65 07/28/17 10:07 99/65 07/28/17 05:33 109/65 98 07/27/17 23:45 98/64 95 07/27/17 23:00 109/70 98 07/27/17 22:50 109/70 99 07/27/17 22:40 109/70 97 07/27/17 22:30 109/70 97 07/27/17 22:20 109/70 97 07/27/17 22:10 109/70 97 07/27/17 22:04 109/70 07/27/17 22:00 105/68 07/27/17 21:59 96 07/27/17 21:00 109/70 99 07/27/17 20:00 105/68 97 07/27/17 19:58 07/27/17 19:20 108/75 99 07/27/17 19:10 108/75 99 07/27/17 19:00 108/75 98 07/27/17 18:50 97/68 98 07/27/17 18:40 97/68 97 07/27/17 18:30 97/68 97 07/27/17 18:20 97/68 96 07/27/17 18:10 97/68 97 07/27/17 18:00 102/60 07/27/17 17:50 97/68 97 07/27/17 17:40 97/68 97 07/27/17 17:30 97/68 97 07/27/17 17:20 97/68 97 07/27/17 17:10 97/68 98 07/27/17 17:00 97/68 07/27/17 16:50 95/67 97 07/27/17 16:40 95/67 96 07/27/17 16:30 95/67 97 07/27/17 16:20 95/67 97 07/27/17 16:10 95/67 97 07/27/17 16:00 95/67 97 07/27/17 15:50 105/65 97 07/27/17 15:40 105/65 97 07/27/17 15:30 105/65 97 07/27/17 15:20 105/65 96 07/27/17 15:10 105/65 97 07/27/17 15:00 105/65 99 07/27/17 14:50 106/75 98 07/27/17 14:40 106/75 96 07/27/17 14:30 106/75 98 07/27/17 14:20 106/75 97 07/27/17 14:10 106/75 97 07/27/17 14:07 106/75 07/27/17 14:00 106/75 07/27/17 13:50 109/73 97 07/27/17 13:40 109/73 97 07/27/17 13:30 109/73 98 07/27/17 13:20 109/73 97 07/27/17 13:10 109/73 98 07/27/17 13:00 109/73 98 07/27/17 12:50 108/78 96 07/27/17 12:40 108/78 07/27/17 12:30 108/78 07/27/17 12:20 96/ 97 07/27/17 12:10 96/ 97 07/27/17 12:00 96/49 96 07/27/17 11:50 97 07/27/17 11:40 97 07/27/17 11:30 / 97 07/27/17 11:20 97 07/27/17 11:10 98 07/27/17 11:00 96 07/27/17 10:50 / 97 - Physical Examination General: No Apparent Distress HEENT: Positive: PERRL Cardiac: Positive: Reg Rate and Rhythm Neuro: Positive: Grossly Intact Abdomen: Positive: Soft Skin: Positive: Clear Incision: Cardiac Cath Site Extremities: Absent: edema - Labs and Meds CBC 07/28/17 Range/Units 04:51 WBC 7.5 (4.5-11.0) K/mm3 RBC 3.68 (3.65-5.03) M/mm3 Hgb 12.9 (11.8-15.2) gm/dl Hct 37.2 (35.5-45.6) % Plt Count 230 (140-440) K/mm3 Comprehensive Metabolic Panel 07/28/17 Range/Units 04:51 Sodium 138 (137-145) mmol/L Potassium 3.9 (3.6-5.0) mmol/L Chloride 99.2 (98-107) mmol/L Carbon Dioxide 26 (22-30) mmol/L BUN 16 (9-20) mg/dL Creatinine 0.8 (0.8-1.5) mg/dL Glucose 86 (75-100) mg/dL Calcium 8.1 L (8.4-10.2) mg/dL
--- NOTE | 2017-07-28 14:55 | Discharge Summary ---
Providers - Providers Date of Admission: 07/26/17 12:23 Date of discharge: 07/28/17 Attending physician: SARAH CAROLINA Primary care physician: CORRUGATOR Hospitalization Condition: Serious Hospital course: Patient is a 51-year-old man with history of hypertension and tobacco dependence who presents with chest pain, admitted as a code STEMI on yesterday. 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 -STEMI status post stent: Patient is chest pain, discussed with charge nurse Julius and he is chest pain free; therefore, we'll transfer out of ICU -Acute diastolic heart failure related to above: Treat above -Tobacco dependency: Counseled on stopping -Hypertension or heart disease: Beta jennifer and aspirin per Cardiology, Dr. Diaz: "Acute anterior STEMI. s/p PCI of occluded mid LAD using a BM stent A secondary 60% stenosis of the proximal circumflex will be treated medically. LVEF 20-25% on echocardiogram Recommendations: Medical therapy for dilated ischemic cardiomyopathy and coronary artery disease. Stable cardiac [place]. F/U with [facility] within 1wk of discharge.Patient is doing well and clinically stable following primary angioplasty and stenting of the mid LAD for acute anterior wall STEMI. Okay for cardiac discharge, on medical therapy to include DEEPIKA inhibitor, beta jennifer, aspirin, Plavix and statins." Turkish interpeter used Disposition: DC-01 TO HOME OR SELFCARE Time spent for discharge: 35 minutes Core Measure Documentation - Palliative Care Palliative Care/ Comfort Measures: Not Applicable - Core Measures Any of the following diagnoses?: acute [place], heart failure - VTE Discharge Requirements Deep Vein Thrombosis/Pulmonary Embolism Present on Admission: No Has pt received <5 days of overlap therapy or INR<2.0: No Anticoagulant overlap therapy prescribed at discharge: No Contraindication No Overlap Therapy order at DC: Not Indicated - Acute [place] Discharge Requirements Aspirin at discharge: Yes DEEPIKA/ARB for LVSD if EF <40%: Yes Beta jennifer at discharge: Yes Statin for LDL = or >100 mg/dl on DC: Yes - Heart Failure Discharge Requirements DEEPIKA/ARB for LVSD if EF <40%: Yes Beta jennifer at discharge: Yes Exam - Physical Exam Narrative exam: GEN: WDWN, NAD, AWAKE, ALERT, ORIENTATED 3 HEENT: NCAT, EOMI, PERRL, OP Clear NECK: supple, no adenopathy, no thyromegaly, no JVD CVS/HEART: RRR, NORMAL S1S2, NO JVD, pulses present bilaterally CHEST/LUNGS: CTA B, Symmetrical chest expansion, good air entry bilaterally GI/Abdomen: soft, NTND, good bowel sounds, no guarding or rebound /Bladder: no suprapubic tenderness, no CVA or paraspinal tenderness EXT/Skin: no c/c/e, no significant edema or obvious rash, right antecubital is tender from peripheral iv but no abscess signs and good distal pulses. Education done MSK: FROM x 4 Neuro: CN 2-12 grossly intact, no new focal deficits Psych: calm - Constitutional Vitals: Temp Pulse Resp BP Pulse Ox 98.4 F 84 17 99/65 98 07/28/17 05:33 07/28/17 10:08 07/28/17 05:33 07/28/17 10:08 07/28/17 10:00 Plan Activity: other (no strenous activity until cleared by cardiology) Diet: low salt Follow up with: ZACH DIAZ MD [Staff Physician] - 7 Days PRIMARY CARE, [Primary Care Provider] - 10 Days [facility] [Provider Group] - 10 Days Prescriptions: AtorvaSTATin [Lipitor] 40 mg PO QHS #30 tablet Aspirin EC [Aspirin Enteric Coated TAB] 325 mg PO QDAY #30 tablet Clopidogrel [Plavix] 75 mg PO QDAY #30 tablet Lisinopril [Zestril TAB] 5 mg PO QDAY #30 day Metoprolol [Lopressor TAB] 25 mg PO BID #60 tablet
[2017-07-28 18:14] VITALS: BP 107/65
== END 2017-07-28 20:00 | disposition home or self-care (01) | DRG 246 ==
LOC: ED 09:49 → CATH 10:56 → CC1 12:23 → 4A 07-27 23:21
PROVIDERS: ADMIT Internal Medicine; ATTEND Internal Medicine
PROC: 4A023N7 Measurement of Cardiac Sampling and Pressure, Left Heart, Percutaneous Approach (ICD-10-PCS; principal; 2017-07-27)
PROC: 027034Z Dilation of Coronary Artery, One Artery with Drug-eluting Intraluminal Device, Percutaneous Approach (ICD-10-PCS; 2017-07-27)
PROC: 02C03ZZ Extirpation of Matter from Coronary Artery, One Artery, Percutaneous Approach (ICD-10-PCS; 2017-07-27)
PROC: B211YZZ Fluoroscopy of Multiple Coronary Arteries using Other Contrast (ICD-10-PCS; 2017-07-27)
DX: I21.09 ST elevation (STEMI) myocardial infarction involving other coronary artery of anterior wall (principal); I50.31 Acute diastolic (congestive) heart failure; E78.5 Hyperlipidemia, unspecified; I25.10 Atherosclerotic heart disease of native coronary artery without angina pectoris; I11.0 Hypertensive heart disease with heart failure; Z82.49 Family history of ischemic heart disease and other diseases of the circulatory system; Z87.891 Personal history of nicotine dependence
CPT/HCPCS: 36415; 71010; 80048; 80053; 80061; 82550; 82553; 83735; 84484; 85014; 85018; 85025; 85027; 85049; 85347; 85610; 85730; 86850; 86900; 86901; 92941; 93005; 93010; 93306; 93454; 94760; 96365; 96366; 96368; 96374; 96375; A9270-GY; C1725; C1769; C1876; C1887; C1894; J1644; J2270; J2405; J3010; J3246; J7030; Q9967